=== PATIENT | female | born 1990 | race Caucasian/White ===

== ENCOUNTER 2019-11-03 00:15 | Inpatient (IN) | payer BC, OTHER ==
[2019-11-03] MEDS ORDERED: Lactated Ringers 1000 ML Bag* 1,000 ML IV ONE (01:41)
[2019-11-03] MEDS ORDERED: Buffered Lidocaine 1% SYRIN* 1 ML/SYRINGE INTRADERM ONE (01:41)
[2019-11-03] MEDS ORDERED: Promethazine INJ(RESTRICTED)* 25 MG/ML 1 ML VIAL IV ONE (01:41)
[2019-11-03] MEDS ORDERED: Nalbuphine* 10 MG/ML 1 ML VIAL IV ONE (01:41)
[2019-11-03] MEDS ORDERED: Lactated Ringers 1000 ML Bag* 1,000 ML IV SCH ×2 (02:00→17:00)
[2019-11-03 03:22] LABS: Urine Benzodiazepine Screen None Detected (None Detect); Urine Opiates Screen None Detected (None Detect)
--- NOTE | 2019-11-03 10:00 | HP ---
General Information - Reason for Visit Pt presented last evening with complaint of continuous pink fluid leaking. Pt reports regular mild ctx, reports + bloody show. - General Information Maternal Age: 29 Grav: 1 Para: 0 SAB: 0 IEA: 0 Estimated Due Date: 11/18/19 Determined By: LMP Gestational Age in Weeks/Days: 37w6d Maternal Blood Type and Rh: A Positive - Results this Serology/RPR Result: Non-Reactive Rubella Result: Non-Immune HBsAg Result: Negative HIV Result: Negative GBS Culture Result: Negative Past Medical History Pertinent Past Medical History: See Records - reflux, borderline thyroid labs, asthma Pertinent Past Surgical History: None Pertinent Family History: See Records - great aunts: breast CA; M: hypothyroid, MGM: hyperthyroid; PGM: ovarian CA, breast CA - Antepartal Records Antepartal Records: Reviewed, Uncomplicated Review of Systems Constitutional: Comfortable CV Complaint: No Respiratory: Shortness of Breath: No Gastrointestinal: No Nausea/Vomiting, Normal Bowel Movement Genitourinary: No Dysuria, No Bleeding, No Leaking Fluid Musculoskeletal: No Epigastric Pain, Contractions Neurological: No Headache, No Visual Changes Movement: Normal Exam Allergies/Adverse Reactions: Allergies No Known Allergies Allergy (Verified 11/03/19 07:28) Vital Signs 11/03/19 02:41 Temperature 97.7 F Pulse Rate 80 Respiratory 16 Rate Blood Pressure 126/92 (mmHg) Lab Values - Entire Visit: Laboratory Tests 11/03/19 02:22 Urine Opiates Screen None detected Ur Barbiturates Screen None detected Ur Phencyclidine Scrn None detected Ur Amphetamines Screen None detected U Benzodiazepines Scrn None detected Urine Cocaine Screen None detected U Cannabinoids Screen None detected - Measurements Height: 5 ft 5 in Weight: 200 lb Weight in lbs: 200.389602 Body Mass Index (BMI): 33.3 Pre- Weight: 170 lb Weight Gained This : 30 lbs and 0 ozs - Exam Breast: Breast Exam Deferred CVA: No CVA Tenderness Extremities: No Edema Heart: Normal Rhythm/Heart Sounds HEENT: No Significant Findings Lungs: Clear Bilaterally Rectal: Rectal Exam Deferred Reflexes: DTR 2+ Thyroid: No Thyromegaly - Abdominal Exam Abdomen Exam: Non-Tender, Fundal Height Consistent with Dates - Ultrasound/Biophysical Profile Ultrasound Status: Not Done Targeted Exam Findings Estimated Weight: 7lbs Cervical Exam: 4cm Effacement: 100% Station: -1 Presenting Part: Vertex Membrane Status: Leaking Amniotic Fluid Evaluation: Bloody Bleeding/Discharge: Bloody Show EFM Findings - External Monitor Findings Baseline Heart Rate: 140 External Monitor Findings: Accelerations Present, No Pattern of Variable or Late Decelerations, Variability Moderate, Baseline Stable Contractions: Regular, Mild, 45-90 Seconds Contraction Frequency: 3-4 Assessment/Plan - Assessment 29 y.o. , 37w6d EGA, SROM, cat I NST, early labor - Plan Plan: Admit - Anticipate Vaginal Delivery - Date/Time of Admission Date of Admission: 11/03/19 Time of Admission: 02:13
[2019-11-03] MEDS ORDERED: Glycerin ADULT SUPP PR PRN (16:05)
[2019-11-03] MEDS ORDERED: Acetaminophen TAB* 325 MG PO PRN (16:05)
--- NOTE | 2019-11-03 16:11 | PROCNOTE ---
[facility] OB: Delivery Note - Delivery A Date of : 11/03/19 Time of : 15:37 Sex: Male Weight at : 8 lb 1 oz Score 1 Minute: 8 Score 5 Minutes: 10 Gestational Age in Weeks and Days at Delivery: 37 Weeks and 6 Days Delivery Method: Spontaneous Vaginal Labor: Spontaneous Amniotic Fluid: Clear Estimated Blood Loss: 150 Anesthesia/Analgesia: None Delivered By: Kina Reilly - Nursery Level of Nursery: Regular/Bedside - Perineum Perineal Injury: Perineal Laceration, 1st Degree
[2019-11-03] MEDS: Witch Hazel PAD* JAR TOPICAL PRN (16:26)
[2019-11-03] MEDS: Ibuprofen TAB* 600 MG PO PRN ×2 (16:26→23:37)
[2019-11-03] MEDS: Dibucaine 1% 28.35 GM TUBE PR PRN (16:26)
[2019-11-03] MEDS ORDERED: Simethicone TAB* 80 MG TAB.CHEW PO SCH (17:30)
--- NOTE | 2019-11-03 18:25 | PTEDU ---
Patient Name: SHANITA BIGGS SHANITA BIGGS selected video: Never Ever Shake a Baby to view on 11/03/2019 at 6:24:17 PM from [facility] [place] [id number]
--- NOTE | 2019-11-03 19:04 | PTEDU ---
Patient Name: SHANITA BIGGS SHANITA BIGGS selected video: Never Ever Shake a Baby to view on 11/03/2019 at 7:03:51 PM from [facility] [id number]
[2019-11-03] MEDS: Docusate CAP* 100 MG PO SCH (20:48)
[2019-11-04 06:41] LABS: ABS Basophils 0.1 10^3/ul (0-0.2); ABS Eosinophils 0.1 10^3/ul (0-0.6); ABS Lymphocytes 2.4 10^3/ul (1.0-4.8); ABS Monocytes 1.2 10^3/ul (0-0.8); ABS Neutrophils 14.8 10^3/ul (1.5-7.7); Eosinophil % 0.5 %; Hematocrit 31 % (35-47); Hemoglobin 10.6 g/dL (12.0-16.0); Lymphocyte % 12.8 %; Mean Corpuscular HGB Conc 34 g/dL (31-36); Mean Corpuscular Hemoglobin 29 pg (27-31); Mean Corpuscular Volume 85 fL (80-97); Mean Platelet Volume 8.8 fL (7.4-10.4); Platelet Count 240 10^3/uL (150-450); Red Blood Count 3.64 10^6 /uL (3.70-4.87); Red Cell Distribution Width 15 % (10-15); White Blood Count 18.5 10^3/uL (3.5-10.8)
[2019-11-04] MEDS: Ibuprofen TAB* 600 MG PO PRN ×3 (08:47→23:40)
[2019-11-04] MEDS: Docusate CAP* 100 MG PO SCH ×3 (08:47→20:08)
[2019-11-04] MEDS ORDERED: Ferrous Gluconate TAB* 324 MG TAB PO SCH (09:00)
[2019-11-04] MEDS: Dibucaine 1% 28.35 GM TUBE PR PRN (20:08)
[2019-11-04] MEDS: Witch Hazel PAD* JAR TOPICAL PRN (20:08)
[2019-11-05 08:40] VITALS: BP 131/83
[2019-11-05] MEDS: Ibuprofen TAB* 600 MG PO PRN (10:01)
[2019-11-05] MEDS: Docusate CAP* 100 MG PO SCH (10:01)
== END 2019-11-05 14:50 | disposition home or self-care (01) | DRG 807 ==
LOC: MCHOBOUT 00:15 → MCHOB 02:13 → UNDODISIN 11-05 14:50
PROVIDERS: ADMIT Midwife; ATTEND Midwife
PROC: 10E0XZZ Delivery of Products of Conception, External Approach (ICD-10-PCS; principal; 2019-11-03)
PROC: 4A1HXCZ Monitoring of Products of Conception, Cardiac Rate, External Approach (ICD-10-PCS; 2019-11-03)
PROC: 0HQ9XZZ Repair Perineum Skin, External Approach (ICD-10-PCS; 2019-11-03)
DX: O70.0 First degree perineal laceration during delivery (principal); Z37.0 Single live birth; Z3A.37 37 weeks gestation of pregnancy
CPT/HCPCS: 36415; 80307; 85025; A9270-GY; G0480